=== PATIENT | female | born 1950 | race Caucasian/White ===

== ENCOUNTER 2021-05-22 05:10 | Emergency (ER) | payer MEDICAID, MEDICARE ==
[2021-05-22 05:43] LABS: CHLORIDE,CL 93 mmol/L (98-107); SODIUM,NA 129 mmol/L (136-145)
[2021-05-22] MEDS ORDERED: Sodium Chloride 0.9% 1,000 ML IV ONE (05:52)
--- NOTE | 2021-05-22 06:00 | EDM.PDOC ---
ED HPI GENERAL MEDICAL PROBLEM - General Chief Complaint: General Stated Complaint: weakness, dehydration Time Seen by Provider: 05/22/21 05:25 Source of Information: Reports: Patient, Family (dtr) History Limitations: Reports: No Limitations - History of Present Illness INITIAL COMMENTS - FREE TEXT/NARRATIVE: Patient presents via ambulance with complaint of dehydration and poor appetite. She says she was diagnosed with Covid on May 02 while in [place] for an event. She suffered with dyspnea, cough, muscle aches, no saliva, fever, diarrhea. That has mostly improved but the saliva problem has persisted and she isn't eating very well. Some diarrhea a couple times again recently. No vomiting. Yesterday and last night she had pain in her chest but gone now. Her daughter says she that 4 days ago she had passed out twice, they suspect low blood sugar. - Related Data Allergies Allergy/AdvReac Type Severity Reaction Status Date / Time beef derived (bovine) Allergy Other Verified 05/22/21 05:13 Penicillins Allergy Other Verified 05/22/21 05:13 Sulfa (Sulfonamide Allergy Other Verified 05/22/21 05:13 Antibiotics) Home Meds: Home Meds . [No Known Home Meds] 05/22/21 [History] Social & Family History - Tobacco Use Tobacco Use Status *Q: Never Tobacco User Second Hand Smoke Exposure: No - Caffeine Use Caffeine Use: Reports: None - Recreational Drug Use Recreational Drug Use: No ED ROS GENERAL - Review of Systems Review Of Systems: See Below Constitutional: Reports: Weakness (general), Fatigue (hasn't been sleeping well), Decreased Appetite. Denies: Fever (previously but not now) HEENT: Reports: No Symptoms Respiratory: Denies: Shortness of Breath, Cough (mostly resolved) Cardiovascular: Denies: Chest Pain, Syncope (not now) GI/Abdominal: Reports: Diarrhea, Decreased Appetite. Denies: Abdominal Pain, Nausea, Vomiting : Denies: Dysuria, Flank Pain, Frequency, Pain, Urgency, Urinary Retention Musculoskeletal: Denies: Neck Pain, Shoulder Pain, Arm Pain, Back Pain, Leg Pain Skin: Denies: Cyanosis, Jaundice, Mottled, Pallor, Diaphoresis Neurological: Reports: Syncope (4 days ago). Denies: Confusion, Dizziness, Headache, Trouble Speaking, Difficulty Walking Psychiatric: Denies: Confusion ED EXAM, GENERAL - Physical Exam Exam: See Below Exam Limited By: No Limitations General Appearance: Alert, WD/WN, No Apparent Distress Eye Exam: Bilateral Eye: EOMI, Normal Inspection, PERRL Ears: Normal External Exam, Hearing Grossly Normal Nose: Normal Inspection, No Blood Throat/Mouth: Normal Inspection (but a little dry), Normal Lips, Normal Voice, No Airway Compromise Head: Atraumatic, Normocephalic Neck: Normal Inspection, Full Range of Motion Respiratory/Chest: No Respiratory Distress, Lungs Clear, Normal Breath Sounds, No Accessory Muscle Use Cardiovascular: Regular Rate, Rhythm, No Edema, No Murmur GI/Abdominal: Normal Bowel Sounds, Soft, Non-Tender, No Organomegaly, No Distention, No Abnormal Bruit, No Mass Back Exam: Normal Inspection, Full Range of Motion. No: CVA Tenderness (L), CVA Tenderness (R) Extremities: Normal Inspection, Normal Range of Motion, No Pedal Edema Neurological: Alert, Oriented, Normal Cognition, No Motor/Sensory Deficits Psychiatric: Normal Affect, Normal Mood Skin Exam: Warm, Dry, Intact, Normal Color, No Rash Course - Vital Signs Last Recorded V/S: Last Vital Signs Temp 97.8 F 05/22/21 06:00 Pulse 81 05/22/21 06:45 Resp 16 05/22/21 06:45 BP 101/52 L 05/22/21 06:45 Pulse Ox 95 05/22/21 06:45 - Orders/Labs/Meds Labs: Laboratory Tests 05/22/21 05/22/21 05/22/21 Range/Units 05:05 05:05 05:05 WBC 10.19 H (5.00-10.00) 10^3/uL RBC 3.57 L (3.80-5.50) 10^6/uL Hgb 11.7 L (12.0-16.0) g/dL Hct 34.1 L (37.0-47.0) % MCV 95.5 H (82.0-92.0) fL MCH 32.8 H (27.0-31.0) pg MCHC 34.3 (32.0-36.0) g/dL RDW 11.9 (11.5-14.5) % Plt Count 230 (150-400) 10^3/uL MPV 8.7 (7.4-10.4) fL Immature Gran % (Auto) 0.2 (0.0-5.0) % Neut % (Auto) 85.8 H (50.0-70.0) % Lymph % (Auto) 5.3 L (20.0-40.0) % [place] % (Auto) 8.2 H (2.0-8.0) % Eos % (Auto) 0.2 L (1.0-3.0) % Baso % (Auto) 0.3 (0.0-1.0) % Neut # (Auto) 8.74 H (2.50-7.00) 10^3/uL Lymph # (Auto) 0.54 L (1.00-4.00) 10^3/uL [place] # (Auto) 0.84 H (0.10-0.80) 10^3/uL Eos # (Auto) 0.02 L (0.10-0.30) 10^3/uL Baso # (Auto) 0.03 (0.00-0.10) 10^3/uL Immature Gran # (Auto) 0.02 (0.00-0.50) 10^3/uL Sodium 129 L (136-145) mmol/L Potassium 3.5 (3.5-5.1) mmol/L Chloride 93 L (98-107) mmol/L Carbon Dioxide 31.5 (21.0-32.0) mmol/L Anion Gap 8.0 (5-15) mmol/L BUN 6 L (7-18) mg/dL Creatinine 0.43 L (0.51-1.17) mg/dL Est Cr Clr Drug Dosing 105.85 mL/min Estimated GFR (MDRD) > 60 mL/min Glucose 131 (70-140) mg/dL Calcium 7.4 L (8.7-10.3) mg/dL Magnesium 1.7 L (1.8-2.4) mg/dL Troponin I Troponin I High Sens (0-51.000) pg/mL 05/22/21 Range/Units 05:05 WBC (5.00-10.00) 10^3/uL RBC (3.80-5.50) 10^6/uL Hgb (12.0-16.0) g/dL Hct (37.0-47.0) % MCV (82.0-92.0) fL MCH (27.0-31.0) pg MCHC (32.0-36.0) g/dL RDW (11.5-14.5) % Plt Count (150-400) 10^3/uL MPV (7.4-10.4) fL Immature Gran % (Auto) (0.0-5.0) % Neut % (Auto) (50.0-70.0) % Lymph % (Auto) (20.0-40.0) % [place] % (Auto) (2.0-8.0) % Eos % (Auto) (1.0-3.0) % Baso % (Auto) (0.0-1.0) % Neut # (Auto) (2.50-7.00) 10^3/uL Lymph # (Auto) (1.00-4.00) 10^3/uL [place] # (Auto) (0.10-0.80) 10^3/uL Eos # (Auto) (0.10-0.30) 10^3/uL Baso # (Auto) (0.00-0.10) 10^3/uL Immature Gran # (Auto) (0.00-0.50) 10^3/uL Sodium (136-145) mmol/L Potassium (3.5-5.1) mmol/L Chloride (98-107) mmol/L Carbon Dioxide (21.0-32.0) mmol/L Anion Gap (5-15) mmol/L BUN (7-18) mg/dL Creatinine (0.51-1.17) mg/dL Est Cr Clr Drug Dosing mL/min Estimated GFR (MDRD) mL/min Glucose (70-140) mg/dL Calcium (8.7-10.3) mg/dL Magnesium (1.8-2.4) mg/dL Troponin I Cancelled Troponin I High Sens 5.100 (0-51.000) pg/mL Meds: Medications Discontinued Medications Generic Name Dose Route Start Last Admin Trade Name Freq PRN Reason Stop Dose Admin Sodium Chloride 1,000 mls @ 999 mls/hr 05/22/21 05:52 05/22/21 05:53 Normal Saline IV 05/22/21 06:52 999 mls/hr .BOLUS ONE Administration - Re-Assessments/Exams Free Text/Narrative Re-Assessment/Exam: 05/22/21 08:08 Labs are normal or close to normal values. WBC and ANC are mildly elevated, likely sequelae from recent Covid pneumonia. She says the cough and sputum have largely resolved in last couple days but still has a bit of cough. We discussed findings and treatment recommendations. I also discussed case with Gisele Hope NP who suggested Biotene as a possible help for saliva, but agreed that hospitalization wouldn't be necessary or indicated. I discussed ideas for getting some food intake and recommended trying small amounts of different soups and soft fruits to start with. She had 500 cc of LR in ambulance and 1 liter of NS in ER. No lab evidence of dehydration. I feel patient is safe to return home today and advised follow up in clinic tomorrow with her PCP if there is any worsening. Her daughter wondered if there would be something better to try for diarrhea than Imodium but Lomotil can cause dry mouth so don't advise that right now. Patient stable at discharge. Departure - Departure Time of Disposition: 08:00 Disposition: Home, Self-Care 01 Condition: Good Clinical Impression: COVID-19, Anorexia Diarrhea Qualifiers: Diarrhea type: unspecified type Qualified Code(s): R19.7 - Diarrhea, unspecified - Discharge Information Referrals: Nina Lopez MD [Primary Care Provider] - Forms: ED Department Discharge Additional Instructions: Try to eat small amounts of food several times a day. Simple soups, fruits, or vegetables would probably be best for this. You can try Biotene to help with the saliva if you wish. Use the Imodium as directed when needed. Continue to drink at least 8 cups of water daily if possible. Follow up with your PCP or ER if fever develops or worsening of cough. Sepsis Event Note (ED) - Evaluation Sepsis Screening Result: No Definite Risk - Focused Exam Vital Signs: Vital Signs Temp Pulse Resp BP Pulse Ox 05/22/21 06:45 81 16 101/52 L 95 05/22/21 06:30 80 16 99/57 L 93 L 05/22/21 06:15 79 16 114/60 90 L 05/22/21 06:00 97.8 F 88 16 111/56 L 92 L 05/22/21 05:59 85 16 113/59 L 93 L 05/22/21 05:58 97.7 F 85 16 121/65 93 L 05/22/21 05:30 95 20 114/57 L 92 L 05/22/21 05:13 97.7 F 85 20 121/65 93 L
== END 2021-05-22 08:24 | disposition home or self-care (01) ==
LOC: KA.ED 05:10
DX: U07.1 COVID-19 (principal); R63.0 Anorexia; R19.7 Diarrhea, unspecified; Z88.0 Allergy status to penicillin; Z88.2 Allergy status to sulfonamides; Z91.018 Allergy to other foods
CPT/HCPCS: 36415; 80048; 83735; 84484; 85025; 99285; J7030; 99284

== ENCOUNTER 2021-06-15 03:20 | Emergency (ER) | payer MEDICARE, MEDICAID ==
--- NOTE | 2021-06-15 03:52 | EDM.PDOC ---
ED HPI GENERAL MEDICAL PROBLEM - General Chief Complaint: Gastrointestinal Problem Stated Complaint: nausea/vomiting Time Seen by Provider: 06/15/21 03:46 Source of Information: Reports: Patient, EMS History Limitations: Reports: No Limitations. Denies: Altered Mental Status - History of Present Illness INITIAL COMMENTS - FREE TEXT/NARRATIVE: PT ARRIVED VIA EMS FOR NAUSEA/VOMITING/WEAKNESS. UPON ARRIVAL PT REFUSED TO SPEAK WITH NURSE OR PROVIDER. PT IN ROUTE BY EMS ASKED THEM TO RETURN HER HOME PRIOR TO ARRIVAL. PT IS ALERT AND ORIENTED X 4 AND IMMEDIATELY CALLED A FRIEND TO COME PICK HER UP FROM THE HOSPITAL. PT WOULD ONLY COMMUNICATE THAT SHE WAS IN OUR ER PREVIOUSLY AND WAS MISDIAGNOSED AND WOULD LIKE TO GO HOME WITHOUT TREATMENT. PT UNDERSTANDS THIS COULD BE A LIGHT THREATENING CONDITION AND COULD LEAD TO OR HALF-WAY DISABILITY. PT SEEMS UPSET BUT AGAIN REFUSES TO BE SEEN BY PROVIDER OR ANSWER ANY OF NURSING QUESTIONS REGARDING HER MEDICAL CONDITION. PT INSTRUCTED TO RETURN TO HOSPITAL NEEDED. PT DISCHARGED FROM ER TO HOSPITAL WAITING ROOM. PT WAS NOT EXAMINED. TEMP-97.1; P-94; RR-16; BP- 133/69; SAO2-94%RA. PT APPEARS STABLE AND IN NAD. PT ABLE TO MAKE INFORMED DECISIONS AND HAS REASONABLE THINKING. - Related Data Allergies Allergy/AdvReac Type Severity Reaction Status Date / Time beef derived (bovine) Allergy Other Verified 05/22/21 05:13 Penicillins Allergy Other Verified 05/22/21 05:13 Sulfa (Sulfonamide Allergy Other Verified 05/22/21 05:13 Antibiotics) Home Meds: Home Meds . 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
== END 2021-06-15 06:30 | disposition left against medical advice (07) ==
LOC: KA.ED 03:20
DX: R11.10 Vomiting, unspecified (principal); Z86.16 Personal history of COVID-19; Z91.018 Allergy to other foods; Z88.0 Allergy status to penicillin; Z88.2 Allergy status to sulfonamides
CPT/HCPCS: 99283

== ENCOUNTER 2021-06-17 07:25 | Observation (INO) | payer MEDICARE, MEDICAID ==
--- NOTE | 2021-06-17 08:13 | EDM.PDOC ---
ED HPI GENERAL MEDICAL PROBLEM - General Chief Complaint: General Stated Complaint: WEAKNESS Time Seen by Provider: 06/17/21 08:05 Source of Information: Reports: Patient History Limitations: Reports: No Limitations - History of Present Illness INITIAL COMMENTS - FREE TEXT/NARRATIVE: 70 YO WF PRESENTS TO ER COMPLAINING OF GENERALIZED WEAKNESS WITH DYSPHAGIA WHICH HAS BEEN ONGOING FOR APPROXIMATELY 1 MONTH. PT HAS BEEN SELF DIAGNOSING HERSELF WITH ORAL CANDIDIASIS AND HAS BEEN TREATED AN OUTPATIENT WITH [employer] SWISH AND SWALLOW BUT STATES IT DIDN'T HELP HER SYMPTOMS. PT CALLED EMS 2 DAYS AGO FOR NAUSEA/VOMITING/WEAKNESS BUT ONCE SHE ARRIVED SHE REFUSED TREATMENT AND SIGNED OUT AGAINST MEDICAL ADVICE. PT REPORTS SHE WAS DIAGNOSED WITH COVID PNEUMONIA ON 05/15/2021 AND WAS SENT HOME WITHOUT TREATMENT. PT WAS SEEN IN [place] ER 05/22/2021 FOR SIMILAR SYMPTOMS AND WAS EVENTUALLY CALLED IN A PRESCRIPTION FOR A Z-SUZANNA. PT TAKES SUPPLEMENTS AT HOME AND IS UNTRUSTING OF THE MEDICAL COMMUNITY. PT REPORTS SHE IS SCARED OF DOCTORS. PT DENIES CHEST PAIN, FEVER/CHILLS, OR SHORTNESS OF BREATH. Onset: Unknown/Unsure Duration: Getting Worse Location: Reports: Generalized Improves with: Reports: None Worsens with: Reports: Other (SWALLOWING) Associated Symptoms: Reports: Nausea/Vomiting, Weakness. Denies: Chest Pain, Cough, Fever/Chills, Rash, Shortness of Breath - Related Data Allergies Allergy/AdvReac Type Severity Reaction Status Date / Time beef derived (bovine) Allergy Other Verified 05/22/21 05:13 Dairy Products Allergy Other Verified 06/17/21 07:41 Penicillins Allergy Other Verified 05/22/21 05:13 Sulfa (Sulfonamide Allergy Other Verified 05/22/21 05:13 Antibiotics) Home Meds: Home Meds . 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: - Infectious Disease History Infectious Disease History: Reports: Novel Coronavirus - Past Surgical History GI Surgical History: Reports: Appendectomy Social & Family History - Caffeine Use Caffeine Use: Reports: None ED ROS GENERAL - Review of Systems Review Of Systems: See Below Constitutional: Reports: Malaise, Weakness, Fatigue HEENT: Reports: Rhinitis, Throat Pain Respiratory: Reports: No Symptoms Cardiovascular: Reports: Lightheadedness Endocrine: Reports: Fatigue GI/Abdominal: Reports: Diarrhea, Nausea : Reports: No Symptoms Musculoskeletal: Reports: No Symptoms Skin: Reports: No Symptoms Neurological: Reports: No Symptoms Psychiatric: Reports: No Symptoms Hematologic/Lymphatic: Reports: No Symptoms Immunologic: Reports: No Symptoms ED EXAM, GENERAL - Physical Exam Exam: See Below Exam Limited By: No Limitations General Appearance: Alert, WD/WN, No Apparent Distress, Thin Ears: Normal External Exam, Normal Canal, Hearing Grossly Normal, Normal TMs Nose: Clear Rhinorrhea Throat/Mouth: Normal Inspection, Normal Lips, Normal Teeth, Normal Gums, Normal Oropharynx, Normal Voice, No Airway Compromise Head: Atraumatic, Normocephalic Neck: Normal Inspection, Supple, Non-Tender, Full Range of Motion Respiratory/Chest: No Respiratory Distress, Lungs Clear, Normal Breath Sounds, No Accessory Muscle Use, Chest Non-Tender Cardiovascular: Normal Peripheral Pulses, Regular Rate, Rhythm, No Edema, No Gallop, No JVD, No Murmur, No Rub GI/Abdominal: Normal Bowel Sounds, Soft, Non-Tender, No Organomegaly, No Distention, No Abnormal Bruit, No Mass Back Exam: Normal Inspection, Full Range of Motion, NT Extremities: Normal Inspection, Normal Range of Motion, Non-Tender, Normal Capillary Refill, No Pedal Edema Neurological: Alert, Oriented, CN II-XII Intact, Normal Cognition, Normal Gait, No Motor/Sensory Deficits Psychiatric: Normal Affect, Depressed Mood Skin Exam: Warm, Dry, Intact, Normal Color, No Rash Lymphatic: No Adenopathy #1 Interpretation EKG Date: 06/17/21 Time: 08:51 Rhythm: NSR Rate (Beats/Min): 98 Leon: Normal P-Wave: Present QRS: Normal ST-T: Normal QT: Normal Course - Vital Signs Last Recorded V/S: Last Vital Signs Temp 99.4 F 06/17/21 07:36 Pulse 85 06/17/21 09:30 Resp 20 06/17/21 09:30 BP 122/68 06/17/21 09:30 Pulse Ox 94 L 06/17/21 09:30 - Orders/Labs/Meds Orders: Active Orders 24 hr Category Date Time Status Peripheral IV Care [RC] . DIRECTED Care 06/17/21 08:28 Active Sodium Chloride 0.9% [Saline Flush] Med 06/17/21 08:27 Active 10 ml FLUSH Q8HR PRN Peripheral IV Insertion Adult [OM.PC] Routine Oth 06/17/21 08:27 Ordered EKG 12 Lead [EK] Stat Ther 06/17/21 08:30 Ordered Medication Orders Sodium Chloride (Sodium Chloride 0.9% 10 Ml Syringe) 10 ml FLUSH Q8HR PRN PRN Reason: keep vein open Labs: Laboratory Tests 06/17/21 06/17/21 06/17/21 Range/Units 08:02 08:45 08:45 WBC 6.34 (5.00-10.00) 10^3/uL RBC 4.14 (3.80-5.50) 10^6/uL Hgb 13.2 D (12.0-16.0) g/dL Hct 39.5 (37.0-47.0) % MCV 95.4 H (82.0-92.0) fL MCH 31.9 H (27.0-31.0) pg MCHC 33.4 (32.0-36.0) g/dL RDW 13.4 (11.5-14.5) % Plt Count 224 (150-400) 10^3/uL MPV 9.6 (7.4-10.4) fL Immature Gran % (Auto) 0.2 (0.0-5.0) % Neut % (Auto) 74.8 H (50.0-70.0) % Lymph % (Auto) 13.6 L (20.0-40.0) % [place] % (Auto) 10.1 H (2.0-8.0) % Eos % (Auto) 0.8 L (1.0-3.0) % Baso % (Auto) 0.5 (0.0-1.0) % Neut # (Auto) 4.75 (2.50-7.00) 10^3/uL Lymph # (Auto) 0.86 L (1.00-4.00) 10^3/uL [place] # (Auto) 0.64 (0.10-0.80) 10^3/uL Eos # (Auto) 0.05 L (0.10-0.30) 10^3/uL Baso # (Auto) 0.03 (0.00-0.10) 10^3/uL Immature Gran # (Auto) 0.01 (0.00-0.50) 10^3/uL Sodium 131 L (136-145) mmol/L Potassium 4.3 (3.5-5.1) mmol/L Chloride 97 L (98-107) mmol/L Carbon Dioxide 22.8 (21.0-32.0) mmol/L Anion Gap 15.5 H (5-15) mmol/L BUN 4 L (7-18) mg/dL Creatinine 0.36 L (0.51-1.17) mg/dL Est Cr Clr Drug Dosing 123.40 mL/min Estimated GFR (MDRD) > 60 mL/min Glucose 104 (70-140) mg/dL Calcium 8.3 L (8.7-10.3) mg/dL Total Bilirubin 0.3 (0.2-1.0) mg/dL AST 32 (15-37) U/L ALT 31 (14-63) U/L Alkaline Phosphatase 130 H (46-116) U/L Creatine Kinase 66 (26-276) U/L CK-MB (CK-2) Cancelled Troponin I High Sens < 4.000 (0-51.000) pg/mL B-Natriuretic Peptide 10 (0-100) pg/mL Total Protein 7.2 (6.4-8.2) g/dL Albumin 3.23 L (3.40-5.00) g/dL SARS CoV-2 RNA Rapid OMER Negative (NEGATIVE) Meds: Medications Generic Name Dose Route Start Last Admin Trade Name Freq PRN Reason Stop Dose Admin Sodium Chloride 10 ml 06/17/21 08:27 Sodium Chloride 0.9% 10 Ml Syringe FLUSH Q8HR PRN keep vein open Discontinued Medications Generic Name Dose Route Start Last Admin Trade Name Freq PRN Reason Stop Dose Admin Sodium Chloride 1,000 mls @ 999 mls/hr 06/17/21 08:27 06/17/21 08:57 Normal Saline IV 06/17/21 09:27 999 mls/hr .BOLUS ONE Administration - Radiology Interpretation Free Text/Narrative:: CXR-NAD Departure - Departure Time of Disposition: 09:59 Disposition: Refer to Observation Condition: Fair Clinical Impression: Hyponatremia, Hypoalbuminemia, Water intoxication Dysphagia Qualifiers: Dysphagia type: unspecified Qualified Code(s): R13.10 - Dysphagia, unspecified - Discharge Information Referrals: Denise Morales PA-C [Primary Care Provider] - Forms: ED Department Discharge Sepsis Event Note (ED) - Evaluation Sepsis Screening Result: No Definite Risk - Focused Exam Vital Signs: Vital Signs Temp Pulse Resp BP Pulse Ox 06/17/21 09:30 85 20 122/68 94 L 06/17/21 09:15 87 18 119/66 94 L 06/17/21 09:00 92 18 119/74 94 L 06/17/21 08:30 96 16 143/79 H 94 L 06/17/21 08:15 106 H 16 132/82 95 06/17/21 08:00 100 18 122/75 94 L 06/17/21 07:45 98 18 126/80 98 06/17/21 07:36 99.4 F 101 H 18 131/84 95 - My Orders Last 24 Hours: My Active Orders 06/17/21 08:27 Sodium Chloride 0.9% [Saline Flush] 10 ml FLUSH Q8HR PRN Peripheral IV Insertion Adult [OM.PC] Routine 06/17/21 08:28 Peripheral IV Care [RC] . DIRECTED 06/17/21 08:30 EKG 12 Lead [EK] Stat - Assessment/Plan Last 24 Hours: My Active Orders 06/17/21 08:27 Sodium Chloride 0.9% [Saline Flush] 10 ml FLUSH Q8HR PRN Peripheral IV Insertion Adult [OM.PC] Routine 06/17/21 08:28 Peripheral IV Care [RC] . DIRECTED 06/17/21 08:30 EKG 12 Lead [EK] Stat Assessment:: 1. HYPONATREMIA 2. GENERALIZED WEAKNESS 3. DYSPHAGIA 4. HYPOALBUMINEMIA Plan: 1. ADMIT TO MEDICINE- OBS-[facility] ACCEPTING @1000 2. ORDERS PER MEDICINE 3. SUPPORTIVE CARE 4. SOCIAL SERVICE CONSULT
[2021-06-17] MEDS ORDERED: Sodium Chloride 0.9% 1,000 ML IV ONE (08:27)
[2021-06-17] MEDS ORDERED: Sodium Chloride 0.9% 10 ML Syringe FLUSH PRN (08:27)
--- NOTE | 2021-06-17 09:16 | CR ---
[id number] RAD/RAD Chest PA or AP 1V EXAM: RAD Chest PA or AP 1V INDICATION: CONGESTION. COMPARISON: April 2021. DISCUSSION/IMPRESSION: Cardiomediastinal silhouette is normal in size and contour. Lungs are clear. No pleural effusion or pneumothorax. Satinder Vogt MD 06/17/21 0962 Thank you for allowing us to participate in the care of your patient.
[2021-06-17 09:31] LABS: ANION GAP 15.5 mmol/L (5-15); CHLORIDE,CL 97 mmol/L (98-107); SODIUM,NA 131 mmol/L (136-145)
--- NOTE | 2021-06-17 10:59 | PCM.HP.2 ---
H&P History of Present Illness - General Date of Service: 06/17/21 Admit Problem/Dx: Admission Diagnosis/Problem Admission Diagnosis/Problem Malnutrition Source of Information: Patient, Old Records, Provider, RN History Limitations: Reports: Other (poor historian) - Related Data Allergies/Adverse Reactions: Allergies Allergy/AdvReac Type Severity Reaction Status Date / Time beef derived (bovine) Allergy Other Verified 05/22/21 05:13 Dairy Products Allergy Other Verified 06/17/21 07:41 Penicillins Allergy Other Verified 05/22/21 05:13 Sulfa (Sulfonamide Allergy Other Verified 05/22/21 05:13 Antibiotics) Home Medications: Home Meds Undecyn 1 - 3 cap PO DAILY PRN 06/17/21 [History] Past Medical History [employer] History: Reports: - Infectious Disease History Infectious Disease History: Reports: Novel Coronavirus - Past Surgical History GI Surgical History: Reports: Appendectomy Social & Family History - Tobacco Use Tobacco Use Status *Q: Never Tobacco User - Caffeine Use Caffeine Use: Reports: None - Recreational Drug Use Recreational Drug Use: No H&P Review of Systems - Review of Systems: Review Of Systems: See Below General: Reports: Decreased Appetite, Weight Loss HEENT: Reports: No Symptoms Pulmonary: Reports: No Symptoms Cardiovascular: Reports: No Symptoms Gastrointestinal: Reports: Diarrhea Genitourinary: Reports: No Symptoms Musculoskeletal: Reports: No Symptoms Skin: Reports: No Symptoms Psychiatric: Reports: Agitation Exam - Exam Exam: See Below - Vital Signs Vital Signs: Last Vital Signs Temp 99.4 F 06/17/21 07:36 Pulse 88 06/17/21 10:00 Resp 20 06/17/21 10:00 BP 153/92 H 06/17/21 10:00 Pulse Ox 95 06/17/21 10:00 Weight: 122 lb - Exam Quality Assessment: No: Supplemental Oxygen General: Alert, Oriented, Cooperative HEENT: Mucosa Moist & Sugden Lungs: Clear to Auscultation, Normal Respiratory Effort Cardiovascular: Regular Rate, Regular Rhythm GI/Abdominal Exam: Normal Bowel Sounds, Soft Back Exam: No: CVA Tenderness (L) Extremities: No: Pedal Edema Peripheral Pulses: 2+: Radial (L), Radial (R) Skin: Warm, Dry, Intact Neurological: Cranial Nerves Intact, Strength Equal Bilateral, Normal Speech, Normal Tone Neuro Extensive - Mental Status: Alert, Oriented x3, Memory Intact. No: Disorientation to Place Neuro Extensive - Motor, Sensory, Reflexes: CN II-XII Intact. No: Dysarthria Psychiatric: Alert, Depressed - Patient Data Lab Results Last 24 hrs: Laboratory Results - last 24 hr 06/17/21 06/17/21 06/17/21 Range/Units 08:02 08:45 08:45 WBC 6.34 (5.00-10.00) 10^3/uL RBC 4.14 (3.80-5.50) 10^6/uL Hgb 13.2 D (12.0-16.0) g/dL Hct 39.5 (37.0-47.0) % MCV 95.4 H (82.0-92.0) fL MCH 31.9 H (27.0-31.0) pg MCHC 33.4 (32.0-36.0) g/dL RDW 13.4 (11.5-14.5) % Plt Count 224 (150-400) 10^3/uL MPV 9.6 (7.4-10.4) fL Immature Gran % (Auto) 0.2 (0.0-5.0) % Neut % (Auto) 74.8 H (50.0-70.0) % Lymph % (Auto) 13.6 L (20.0-40.0) % [place] % (Auto) 10.1 H (2.0-8.0) % Eos % (Auto) 0.8 L (1.0-3.0) % Baso % (Auto) 0.5 (0.0-1.0) % Neut # (Auto) 4.75 (2.50-7.00) 10^3/uL Lymph # (Auto) 0.86 L (1.00-4.00) 10^3/uL [place] # (Auto) 0.64 (0.10-0.80) 10^3/uL Eos # (Auto) 0.05 L (0.10-0.30) 10^3/uL Baso # (Auto) 0.03 (0.00-0.10) 10^3/uL Immature Gran # (Auto) 0.01 (0.00-0.50) 10^3/uL Sodium 131 L (136-145) mmol/L Potassium 4.3 (3.5-5.1) mmol/L Chloride 97 L (98-107) mmol/L Carbon Dioxide 22.8 (21.0-32.0) mmol/L Anion Gap 15.5 H (5-15) mmol/L BUN 4 L (7-18) mg/dL Creatinine 0.36 L (0.51-1.17) mg/dL Est Cr Clr Drug Dosing 123.40 mL/min Estimated GFR (MDRD) > 60 mL/min Glucose 104 (70-140) mg/dL Calcium 8.3 L (8.7-10.3) mg/dL Total Bilirubin 0.3 (0.2-1.0) mg/dL AST 32 (15-37) U/L ALT 31 (14-63) U/L Alkaline Phosphatase 130 H (46-116) U/L Creatine Kinase 66 (26-276) U/L CK-MB (CK-2) Cancelled Troponin I High Sens < 4.000 (0-51.000) pg/mL B-Natriuretic Peptide 10 (0-100) pg/mL Total Protein 7.2 (6.4-8.2) g/dL Albumin 3.23 L (3.40-5.00) g/dL SARS CoV-2 RNA Rapid OMER Negative (NEGATIVE) Result Diagrams: 06/17/21 08:45 06/17/21 08:45 Sepsis Event Note - Evaluation Sepsis Screening Result: No Definite Risk - Focused Exam Vital Signs: Vital Signs Temp Pulse Resp BP Pulse Ox 06/17/21 10:00 88 20 153/92 H 95 06/17/21 09:30 85 20 122/68 94 L 06/17/21 09:15 87 18 119/66 94 L 06/17/21 09:00 92 18 119/74 94 L 06/17/21 08:30 96 16 143/79 H 94 L 06/17/21 08:15 106 H 16 132/82 95 06/17/21 08:00 100 18 122/75 94 L 06/17/21 07:45 98 18 126/80 98 06/17/21 07:36 99.4 F 101 H 18 131/84 95 Problem List Initiated/Reviewed/Updated: Yes Orders Last 24hrs: Active Orders 24 hr Category Date Time Status Patient Status Manage Transfer [TRANSFER] Routine ADT 06/17/21 10:06 Active Peripheral IV Care [RC] . DIRECTED Care 06/17/21 08:28 Active Sodium Chloride 0.9% [Saline Flush] Med 06/17/21 08:27 Active 10 ml FLUSH Q8HR PRN Peripheral IV Insertion Adult [OM.PC] Routine Oth 06/17/21 08:27 Ordered Resuscitation Status Routine Resus Stat 06/17/21 10:07 Ordered EKG 12 Lead [EK] Stat Ther 06/17/21 08:30 Ordered Medication Orders Sodium Chloride (Sodium Chloride 0.9% 10 Ml Syringe) 10 ml FLUSH Q8HR PRN PRN Reason: keep vein open Assessment/Plan Comment:: History of Present Illness; Joy is a 70-year-old female that was admitted into OBS status due to some generalized weakness along with dysphagia for the past month. Patient does have a psychiatric background which limits accurate review of systems and history however she is quite obstinate stating that she has oral candidiasis and she feels it is got into her bloodstream. Recent history of AGAINST MEDICAL ADVICE when she called EMS 2 days ago for nausea vomiting and weakness however upon arrival she refused treatment and signed out AMA. Diagnosed Covid May 15 sent home without treatment again was seen in the ED 825 similar symptoms in which she was started on a Z-Candido. Patient takes OTC (digestive's enzymes and also a GI product Undecyn) supplements at home and is quite untrusting in the medical community. Records indicate 15 pound weight loss since November however due to her recent illness/dysphagia 10 of those pounds more recently. Patient was evaluated [facility] May 28 she came in for SOB and cough thinking she had ongoing oral candidiasis as she was diagnosed on all on 05/11 for this in which he claimed improved with nystatin. ED course, Quite obstinate about not wanting to be admitted, took significant amount of effort however does not meet inpatient qualification. Sodium level 131 possible SIADH psychiatric history and increase oral intake. Labs with sodium 131 no anemia, alk phos slightly elevated 130, negative cardio biomarkers, albumin 3.23 Primary hospital problems --Dysphagia, pharyngeal phase, --Hyponatremia, possible SIADH or Potomania, urine sodium studies --Weakness, generalized --Diarrhea, assess for c-diff Disposition/overall plan I do not think patient meets inpatient qualification based off of physical exam, history however will need upper EGD due to esophageal dysphagia with recent weight loss however I suspect likely SIADH or even Potomania that is contributing to her condition at this time. However given her weight loss may have concomitant esophageal stricture. Today, saline lock IV, limit p.o. fluids, assess TSH, urine studies, magnesium and C. difficile. [employer] consultation today given her recent history - Mortality Measure Prognosis:: Good
[2021-06-17] MEDS ORDERED: Pantoprazole 40 MG Tab.CR PO SCH (12:01)
[2021-06-17] MEDS ORDERED: LORazepam 0.5 MG Tab PO ONE (12:20)
== END 2021-06-17 14:11 | disposition left against medical advice (07) ==
LOC: KA.ED 07:25 → KA.MS 10:06
PROVIDERS: ADMIT Physician Assistant Medical; ATTEND Nurse Practitioner Family
DX: R13.10 Dysphagia, unspecified (principal); R53.1 Weakness; R19.7 Diarrhea, unspecified; E87.1 Hypo-osmolality and hyponatremia; Z88.2 Allergy status to sulfonamides; Z88.0 Allergy status to penicillin; Z91.011 Allergy to milk products; Z91.018 Allergy to other foods; Z90.49 Acquired absence of other specified parts of digestive tract; Z20.822 Contact with and (suspected) exposure to COVID-19
CPT/HCPCS: 36415; 71045; 80053; 82550; 83735; 83880; 83930; 84443; 84484; 85025; 93005; 99284; 99285-25; G0378; J7030; U0002